=== PATIENT | male | born 2000 | race Caucasian/White ===

== ENCOUNTER 2025-05-04 04:22 | Emergency (ER) | payer OTHER ==
[~2025-05-04] VITALS: Ht 172.7 cm; Wt 86.0 kg
[2025-05-04 04:31] VITALS: O2SAT 100
[2025-05-04] MEDS: MORPHINE SULFATE 4 MG/ML INJ (FOR IV/IM USE) IV ONE (05:39)
[2025-05-04 06:12] LABS: BASOPHILS % 0.3 % (0.0-2.0); EOSINOPHILS % 1.5 % (0.0-5.0); HEMATOCRIT. 45.3 % (42.0-52.0); HEMOGLOBIN. 15.6 g/dL (14.0-18.0); LYMPHOCYTES % 28.7 % (20.0-50.0); MEAN PLATELET VOLUME 9.4 fl (7.4-10.4); MONOCYTES % 8.4 % (2.0-8.0); NEUTROPHILS % 61.1 % (40.0-76.0); PLATELET 253 x1000/uL (130-400); RED BLOOD CELL COUNT 4.99 mill/uL (4.7-6.1); RED CELL DISTRIBUTION WIDTH 12.8 % (11.6-14.6)
[2025-05-04 06:26] LABS: CREATININE 1.1 mg/dL (0.6-1.3)
[2025-05-04 06:27] LABS: UREA NITROGEN BLOOD 9 mg/dL (9-23)
[2025-05-04 06:28] LABS: ASPARTATE AMINOTRANSFERASE 23 IU/L (<34)
[2025-05-04 06:29] LABS: BILIRUBIN DIRECT 0.1 mg/dL (<=3.0); BILIRUBIN TOTAL 0.5 mg/dL (0.1-1.0); PROTEIN TOTAL 7.7 g/dL (6.0-8.3)
[2025-05-04] MEDS: LIDOCAINE HCL/EPINEPHRINE 1%-EPI 1:100,000 20ML VIAL INFIL ONE (06:37)
[2025-05-04] MEDS ORDERED: IBUP-2028 PO (06:43)
[2025-05-04 07:23] VITALS: BP 136/79; PULSE 96; RESP 19; TEMP 37; O2SAT 100
== END 2025-05-04 07:25 | disposition home or self-care (01) ==
LOC: ER 04:22
DX: S01.01XA Laceration without foreign body of scalp, initial encounter (principal); M25.511 Pain in right shoulder; R51.9 Headache, unspecified; Z79.899 Other long term (current) drug therapy; Z79.1 Long term (current) use of non-steroidal anti-inflammatories (NSAID); V49.9XXA Car occupant (driver) (passenger) injured in unspecified traffic accident, initial encounter; Y93.89 Activity, other specified; Y92.410 Unspecified street and highway as the place of occurrence of the external cause; Y99.8 Other external cause status
CPT/HCPCS: 80076; 80048; 80320; 82962; 83690; 85025; 86850; 86900; 86901; 36415; 71045; 70450; 72125; 74176; 93005; 12002; 96374; 99285; J2004; J2270; Z7610 ×5; A4606; G0480